=== PATIENT | male | born 1940 | race Caucasian/White ===

== ENCOUNTER → 2016-10-21 | Outpatient (CLI) | payer BC ==
[~2016-10-21] MED LIST: ASCA500 PO; ASCO10003 PO; ASCO500T16 PO; ASPEC81 PO; ASPI-232 PO; ASPITAB71 PO; HYDR25SU6 PR; IBUP200T80 PO; LISI5TAB PO; LISI5TAB3 PO; LOPE2TAB84 PO; MULT-506 PO; SIMV10TA2 PO
[2016-10-21 13:06] LABS: BASO % 0.1 %; BASO ABS # 0.01 K/uL (0-0.2); COMPLETE YES; HEMATOCRIT 44.4 % (42-52); IG% 0.1 %; LYMPH % 19.2 %; LYMPH ABS # 1.48 K/uL (1.2-3.4); MEAN CELL VOLUME 87.6 fL (80-100); MEAN CORPUSCULAR HEMOGLOBIN 30.4 pg (25-34); MEAN CORPUSCULAR HGB CONC 34.7 g/dl (32-36); MONO % 7.4 %; NEUT % 72.2 %; PLATELET COUNT 126 K/uL (130-400); PLT ESTIMATE DECREASED; RED BLOOD COUNT 5.07 M/uL (4.7-6.1); WHITE BLOOD COUNT 7.71 K/uL (4.8-10.8)
[2016-10-21 13:08] LABS: ALT/SGPT 19 U/L (12-78); AST/SGOT 14 U/L (15-37); BLOOD UREA NITROGEN 18 mg/dl (7-18); CARBON DIOXIDE 26 mmol/L (21-32); CHLORIDE 109 mmol/L (98-107); GLUCOSE 90 mg/dl (70-99); POTASSIUM 4.1 mmol/L (3.5-5.1); SODIUM 145 mmol/L (136-145)
[2016-10-21 13:13] LABS: ALB/GLOB RATIO 1.1 (0.9-2); ALKALINE PHOSPHATASE 42 U/L (45-117); CHOLESTEROL 111 mg/dl (0-200); CHOLESTEROL/HDL RATIO 2.7; HDL CHOLESTEROL 41 mg/dl; LDL CHOLESTEROL CALCULATED 55 mg/dl; TRIGLYCERIDES 74 mg/dl (0-150); VERY LOW DENSITY LIPOPROT CALC 15 mg/dl
== END | disposition home or self-care (01) ==
LOC: C.LABBFT 08:35
PROVIDERS: ATTEND Internal Medicine
DX: E78.5 Hyperlipidemia, unspecified (principal); I10 Essential (primary) hypertension

== ENCOUNTER → 2017-02-17 | Outpatient (CLI) | payer BC | END | disposition home or self-care (01) | LOC: C.LABSPEC 17:29 | PROVIDERS: ATTEND Internal Medicine | DX: R19.7 Diarrhea, unspecified (principal) ==

== ENCOUNTER → 2017-02-19 | Outpatient (CLI) | payer BC ==
[~2017-02-19] MED LIST changes: +OPTIRAY 320 IV PRN
[2017-02-19 09:08] LABS: BLOOD UREA NITROGEN 13 mg/dl (7-18)
--- NOTE | 2017-02-19 10:47 | DIAGNOSTIC IMAGING REPORT ---
CT OF THE ABDOMEN AND PELVIS WITH CONTRAST CLINICAL HISTORY: Diarrhea. Weight loss. COMPARISON STUDY: None. TECHNIQUE: Following IV administration of 94 mL of Optiray-320, axial images of the abdomen and pelvis were obtained from the lung bases to the proximal femurs. Images were reviewed in the axial, sagittal, and coronal planes. IV contrast was administered without complication. Oral contrast was administered. CT DOSE: 336.23 mGy.cm FINDINGS: The heart is mildly enlarged. There is extensive coronary artery calcification. No pneumatosis, free air or portal venous gas is present. Mild emphysema is noted within visualized portions of the lower lungs. The liver, spleen, right adrenal gland and pancreas are unremarkable. A 1.5 cm left adrenal nodule is likely benign. There is no biliary or pancreatic ductal dilatation. There is no hydronephrosis. A 1.2 cm cyst within the midpole of the left kidney is noted. Caliber and wall thickness of small and large bowel are normal. The appendix is normal. There are scattered colonic diverticula without evidence for acute diverticulitis. There is no lymphadenopathy. There are brachytherapy seeds within the prostate. No suspicious osseous lesions are present. Mild compression deformity of the superior endplate of L1 is old. There are postsurgical findings consistent with a right inguinal hernia repair. Sensitivity for detection of mucosal lesions diminished given CT technique. There is moderate atherosclerotic plaque of the abdominal aorta. IMPRESSION: 1. No acute process within the abdomen or pelvis. 2. Mild cardiomegaly and extensive coronary artery calcification. 3. No abdominal or pelvic lymphadenopathy. Electronically signed by: Emile Park M.D. 02/19/2017 10:45 AM Dictated Date/Time: 02/19/2017 10:03 AM
== END | disposition home or self-care (01) ==
LOC: C.CTS 08:27
PROVIDERS: ATTEND Internal Medicine
DX: R19.7 Diarrhea, unspecified (principal)

== ENCOUNTER 2017-04-03 14:17 | Emergency (ER) | payer BC ==
[~2017-04-03] VITALS: Ht 175.3 cm; Wt 69.9 kg
[~2017-04-03 14:17] MED LIST changes: -ASCO10003 PO; -ASCO500T16 PO; -ASPI-232 PO; -HYDR25SU6 PR; -IBUP200T80 PO; -LISI5TAB PO; -LOPE2TAB84 PO; -OPTIRAY 320 IV PRN
[2017-04-03 14:26] VITALS: TEMP 36.4; Ht 175.3 cm; Wt 69.9 kg
[2017-04-03 15:22] LABS: BASO % 0.1 %; BASO ABS # 0.01 K/uL (0-0.2); COMPLETE YES; EOS % 0.2 %; HEMATOCRIT 40.7 % (42-52); IG% 0.1 %; LYMPH % 15.4 %; MEAN CELL VOLUME 87.9 fL (80-100); MEAN CORPUSCULAR HEMOGLOBIN 29.2 pg (25-34); MEAN CORPUSCULAR HGB CONC 33.2 g/dl (32-36); MEAN PLATELET VOLUME 11.2 fL (7.4-10.4); MONO % 6.2 %; PLATELET COUNT 149 K/uL (130-400); RED BLOOD COUNT 4.63 M/uL (4.7-6.1); WHITE BLOOD COUNT 9.73 K/uL (4.8-10.8)
[2017-04-03 15:39] LABS: BUN/CREATININE RATIO 11.8 (10-20); CALCIUM 8.8 mg/dl (8.5-10.1); CREATININE 1.1 mg/dl (0.60-1.40); MAGNESIUM 2.4 mg/dl (1.8-2.4)
[2017-04-03 15:41] LABS: ALB/GLOB RATIO 0.9 (0.9-2)
--- NOTE | 2017-04-03 15:41 | DIAGNOSTIC IMAGING REPORT ---
CT OF THE HEAD WITHOUT CONTRAST CLINICAL HISTORY: Change in mental status. COMPARISON STUDY: Head CT November 16, 2015. CT DOSE: 623.48 mGy.cm TECHNIQUE: Helical axial images of the head were obtained without IV contrast. Automated exposure control was utilized for the study. A dose lowering technique was utilized adhering to the principles of ALARA. FINDINGS: No acute intracranial hemorrhage, midline shift or mass effect is present. Ventricular system is stable. Basilar cisterns are patent. There are no extra-axial collections. Extensive white matter hypodensity suggests small vessel disease. There are no findings to suggest acute dural sinus thrombosis or acute territorial infarct. There are no significant calvarial abnormalities. Visualized portions of the sinuses and mastoid air cells are clear. IMPRESSION: No acute intracranial findings. Electronically signed by: Emile Park M.D. 04/03/2017 3:40 PM Dictated Date/Time: 04/03/2017 3:37 PM
[2017-04-03] MEDS ORDERED: IBUP200T80 PO (15:55)
[2017-04-03] MEDS ORDERED: LISI5TAB PO (15:55)
[2017-04-03] MEDS ORDERED: ASPI-232 PO (15:55)
[2017-04-03] MEDS ORDERED: ASCO10003 PO (15:55)
--- NOTE | 2017-04-03 16:20 | DIAGNOSTIC IMAGING REPORT ---
PA CHEST RADIOGRAPH AND UPRIGHT AND SUPINE AP RADIOGRAPHS OF THE ABDOMEN CLINICAL HISTORY: Diarrhea. COMPARISON STUDY: Chest radiograph May 08, [address] of the abdomen and pelvis February 19, 2017. FINDINGS: Lung volumes are normal. Lungs are clear. There is no pneumothorax or pleural effusion. Cardiac size is normal. There is no evidence of pulmonary edema. There is no free air. A few round hyperdensities within the abdomen and pelvis likely reflects contrast or calcifications within colonic diverticula. Bowel gas pattern is normal. There are brachytherapy seeds within the prostate. IMPRESSION: 1. No free air or evidence of bowel obstruction. 2. No acute cardiopulmonary findings. Electronically signed by: Emile Park M.D. 04/03/2017 4:19 PM Dictated Date/Time: 04/03/2017 4:14 PM
[2017-04-03 16:34] LABS: URINE APPEARANCE CLEAR (CLEAR); URINE BILIRUBIN NEG (NEG); URINE COLOR YELLOW; URINE NITRITE NEG (NEG); URINE SPECIFIC GRAVITY 1.019 (1.000-1.030); UROBILINOGEN NEG (NEG); ZZUR CULT IF INDIC CLEAN CATCH NO
[2017-04-03 16:36] LABS: MANUAL MICROSCOPIC REQUIRED? NO; REVIEW REQ? NO
[2017-04-03] MEDS ORDERED: OPTIRAY 320 IV PRN (17:15)
--- NOTE | 2017-04-03 18:38 | DIAGNOSTIC IMAGING REPORT ---
CT OF THE ABDOMEN AND PELVIS WITH CONTRAST CLINICAL HISTORY: Diarrhea. Elevated lipase. COMPARISON STUDY: CT of the abdomen and pelvis February 19, 2017. TECHNIQUE: Following IV administration of 94 mL of Optiray-320, axial images of the abdomen and pelvis were obtained from the lung bases to the proximal femurs. Images were reviewed in the axial, sagittal, and coronal planes. IV contrast was administered without complication. A dose lowering technique was utilized adhering to the principles of ALARA. CT DOSE: 325.38 mGy.cm FINDINGS: The liver, spleen, adrenal glands, right kidney and pancreas are normal. No pancreatic or biliary ductal dilatation. There is no peripancreatic infiltration. There are no peripancreatic fluid collections. Several left renal cysts are noted. There is no evidence for a bowel obstruction. There is colonic diverticulosis without evidence for acute diverticulitis. The appendix is normal. Brachytherapy seeds within the prostate are noted. There are no suspicious osseous lesions. There are findings suggestive of a right inguinal hernia repair. There is moderate atherosclerotic plaque of the abdominal aorta. IMPRESSION: 1. No acute process within the abdomen or pelvis. 2. Normal CT appearance of the pancreas. 3. No bowel obstruction. Normal appendix. Electronically signed by: Emile Park M.D. 04/03/2017 6:36 PM Dictated Date/Time: 04/03/2017 6:28 PM
--- NOTE | 2017-04-03 19:08 | EMERGENCY ROOM VISIT NOTE ---
History Report prepared by Nacho: Zainab Chamorro Under the Supervision of: Dr. Briseyda Bar D.O. First contact with patient: 14:36 Chief Complaint: ALTERED MENTAL STATUS Stated Complaint: CONFUSED Nursing Triage Summary: brought in because he has been confused for a while and it has been getting worse. states the matchbook assembler told her to bring him to the hospital. she also states he has lost 40 pounds and has been having diarrhea for 6 months. xiao package of medication patient has been taking was told by a friend to try it for his stomach and he has been taking it. she did not relieze that it is a laxative and what is probably giving him the diarrhea. History of Present Illness The patient is a 76 year old male who presents to the Emergency Room with complaints of an episode of confusion starting a few weeks ago. The patient's states that he has been saying things that aren't true. She states that he asked for a divorce though they are not experiencing marital problems. The patient states that he has had diarrhea for 6 months. He reports that he talked to his preacher and his gave him laxatives that have helped with the frequency. He states prior to taking the laxatives, he was having a bowel movement every half hour. The patient's reports that he has lost 40 lbs in the past 6 months. The patient notes that he has never been constipated in the past. The patient states that he went to the doctors for the diarrhea recently. He reports that they completed a CT and lab work that came back normal. The patient complains of chills. The patient denies hematochezia, abdominal pains, bloating, gassy, cramping, nausea, vomiting, fevers, chest pain, shortness of breath, swelling in legs, change in appetite, and urinary symptoms. The patient notes that he has had difficulty remembering things for the past two years. Difficulty obtaining hx from pt and . concerned about memory loss and pt concerned about diarrhea. Source of History: patient Onset: few weeks ago Position: other (global) Quality: other (global) Timing: other (episode) Modifying Factors (Relieving): other (laxatives) Associated Symptoms: + chills, + diarrhea, No fevers, No chest pain, No SOB , No nausea, No vomiting, No abdominal pain, No hematochezia, No urinary symptoms Note: The patient complains of difficulty remembering things. The patient denies bloating, feeling gassy, cramping, swelling in legs, and change of appetite. Review of Systems Pt denies headache, change in vision, fevers, chest pain, shortness of breath, nausea, vomiting, diarrhea, pain with urination, and melena. Past Medical & Surgical Surgical Problems: (1) History of knee replacement, total Family History Cancer Social History Smoking Status: Former Smoker Alcohol Use: none Drug Use: none Marital Status: Housing Status: lives with significant other Occupation Status: retired Current/Historical Medications Scheduled Ascorbic Acid (Vitamin C), 1 TAB PO DAILY Aspirin (Aspir-81), 1 TAB PO DAILY Lisinopril (Prinivil), 5 MG PO DAILY Simvastatin (Zocor), 10 MG PO DAILY Scheduled PRN Ibuprofen (Ibu-200), 2 TAB PO QID PRN for Pain Allergies Coded Allergies: Heparin (Verified Allergy, Severe, HIT ANTIBODY POSITIVE (PER DR JONES) , 04/03/17) Hydrocodone (Unverified Allergy, Severe, SHORTNESS OF BREATH, 04/03/17) Physical Exam Vital Signs Date Time Temp Pulse Resp B/P (MAP) Pulse Ox O2 Delivery O2 Flow Rate FiO2 04/03/17 19:24 57 18 173/102 98 04/03/17 18:09 56 20 192/79 97 04/03/17 15:40 54 20 165/95 96 04/03/17 14:26 36.4 62 20 133/82 96 Room Air Physical Exam GENERAL: alert, well appearing, well nourished, no distress, non-toxic EYE EXAM: normal conjunctiva, PERRL and EOM's grossly intact OROPHARYNX: no exudate, no erythema, lips, buccal mucosa, and tongue normal and mucous membranes are moist NECK: supple, no nuchal rigidity, no adenopathy, non-tender LUNGS: Clear to auscultation. Normal chest wall mechanics HEART: no murmurs, S1 normal and S2 normal ABDOMEN: abdomen soft, non-tender, normo-active bowel sounds, no masses, no rebound or guarding. BACK: Back is symmetrical on inspection and there is no deformity, no midline tenderness, no CVA tenderness. SKIN: no rashes and no bruising UPPER EXTREMITIES: upper extremities are grossly normal. LOWER EXTREMITIES: No pitting edema. NEURO EXAM: Normal sensorium, cranial nerves II-XII grossly intact, normal speech, no gross weakness of arms, no gross weakness of legs. Patient has some memory difficulty, no ataxia, no facial droop, speech was clear. Medical Decision & Procedures ER Provider Diagnostic Interpretation: Radiology results have been interpreted by the radiologist and reviewed by me. CT OF THE HEAD WITHOUT CONTRAST CLINICAL HISTORY: Change in mental status. COMPARISON STUDY: Head CT November 16, 2015. CT DOSE: 623.48 mGy.cm TECHNIQUE: Helical axial images of the head were obtained without IV contrast. Automated exposure control was utilized for the study. A dose lowering technique was utilized adhering to the principles of ALARA. FINDINGS: No acute intracranial hemorrhage, midline shift or mass effect is present. Ventricular system is stable. Basilar cisterns are patent. There are no extra-axial collections. Extensive white matter hypodensity suggests small vessel disease. There are no findings to suggest acute dural sinus thrombosis or acute territorial infarct. There are no significant calvarial abnormalities. Visualized portions of the sinuses and mastoid air cells are clear. IMPRESSION: No acute intracranial findings. Electronically signed by: Emile Park M.D. 04/03/2017 3:40 PM Dictated Date/Time: 04/03/2017 3:37 PM PA CHEST RADIOGRAPH AND UPRIGHT AND SUPINE AP RADIOGRAPHS OF THE ABDOMEN CLINICAL HISTORY: Diarrhea. COMPARISON STUDY: Chest radiograph May 08, [address] of the abdomen and pelvis February 19, 2017. FINDINGS: Lung volumes are normal. Lungs are clear. There is no pneumothorax or pleural effusion. Cardiac size is normal. There is no evidence of pulmonary edema. There is no free air. A few round hyperdensities within the abdomen and pelvis likely reflects contrast or calcifications within colonic diverticula. Bowel gas pattern is normal. There are brachytherapy seeds within the prostate. IMPRESSION: 1. No free air or evidence of bowel obstruction. 2. No acute cardiopulmonary findings. Electronically signed by: Emile Park M.D. 04/03/2017 4:19 PM Dictated Date/Time: 04/03/2017 4:[address] OF THE ABDOMEN AND PELVIS WITH CONTRAST CLINICAL HISTORY: Diarrhea. Elevated lipase. COMPARISON STUDY: CT of the abdomen and pelvis February 19, 2017. TECHNIQUE: Following IV administration of 94 mL of Optiray-320, axial images of the abdomen and pelvis were obtained from the lung bases to the proximal femurs. Images were reviewed in the axial, sagittal, and coronal planes. IV contrast was administered without complication. A dose lowering technique was utilized adhering to the principles of ALARA. CT DOSE: 325.38 mGy.cm FINDINGS: The liver, spleen, adrenal glands, right kidney and pancreas are normal. No pancreatic or biliary ductal dilatation. There is no peripancreatic infiltration. There are no peripancreatic fluid collections. Several left renal cysts are noted. There is no evidence for a bowel obstruction. There is colonic diverticulosis without evidence for acute diverticulitis. The appendix is normal. Brachytherapy seeds within the prostate are noted. There are no suspicious osseous lesions. There are findings suggestive of a right inguinal hernia repair. There is moderate atherosclerotic plaque of the abdominal aorta. IMPRESSION: 1. No acute process within the abdomen or pelvis. 2. Normal CT appearance of the pancreas. 3. No bowel obstruction. Normal appendix. Electronically signed by: Emile Park M.D. 04/03/2017 6:36 PM Dictated Date/Time: 04/03/2017 6:28 PM Laboratory Results 04/03/17 15:05 Red Blood Count 4.63, Mean Corpuscular Volume 87.9, Mean Corpuscular Hemoglobin 29.2, Mean Corpuscular Hemoglobin Concent 33.2, Mean Platelet Volume 11.2, Neutrophils (%) (Auto) 78.0, Lymphocytes (%) (Auto) 15.4, Monocytes (%) (Auto) 6.2, Eosinophils (%) (Auto) 0.2, Basophils (%) (Auto) 0.1, Neutrophils # (Auto) 7.59, Lymphocytes # (Auto) 1.50, Monocytes # (Auto) 0.60, Eosinophils # (Auto) 0.02, Basophils # (Auto) 0.01 04/03/17 15:05 Test 04/03/17 15:05 04/03/17 16:20 White Blood Count 9.73 K/uL (4.8-10.8) Red Blood Count 4.63 M/uL (4.7-6.1) Hemoglobin 13.5 g/dL (14.0-18.0) Hematocrit 40.7 % (42-52) Mean Corpuscular Volume 87.9 fL (80-100) Mean Corpuscular Hemoglobin 29.2 pg (25-34) Mean Corpuscular Hemoglobin Concent 33.2 g/dl (32-36) Platelet Count 149 K/uL (130-400) Mean Platelet Volume 11.2 fL (7.4-10.4) Neutrophils (%) (Auto) 78.0 % Lymphocytes (%) (Auto) 15.4 % Monocytes (%) (Auto) 6.2 % Eosinophils (%) (Auto) 0.2 % Basophils (%) (Auto) 0.1 % Neutrophils # (Auto) 7.59 K/uL (1.4-6.5) Lymphocytes # (Auto) 1.50 K/uL (1.2-3.4) Monocytes # (Auto) 0.60 K/uL (0.11-0.59) Eosinophils # (Auto) 0.02 K/uL (0-0.5) Basophils # (Auto) 0.01 K/uL (0-0.2) RDW Standard Deviation 43.7 fL (36.4-46.3) RDW Coefficient of Variation 13.6 % (11.5-14.5) Immature Granulocyte % (Auto) 0.1 % Immature Granulocyte # (Auto) 0.01 K/uL (0.00-0.02) Anion Gap 5.0 mmol/L (3-11) Est Creatinine Clear Calc Drug Dose 57.4 ml/min Estimated GFR () 75.7 Estimated GFR (Non- 65.3 BUN/Creatinine Ratio 11.8 (10-20) Lactic Acid Level 1.0 mmol/L (0.4-2.0) Calcium Level 8.8 mg/dl (8.5-10.1) Magnesium Level 2.4 mg/dl (1.8-2.4) Total Bilirubin 0.6 mg/dl (0.2-1) Aspartate Amino Transf (AST/SGOT) 15 U/L (15-37) Alanine Aminotransferase (ALT/SGPT) 18 U/L (12-78) Alkaline Phosphatase 51 U/L (45-117) Ammonia 17.0 umol/L (11-32) Total Protein 7.0 gm/dl (6.4-8.2) Albumin 3.3 gm/dl (3.4-5.0) Globulin 3.7 gm/dl (2.5-4.0) Albumin/Globulin Ratio 0.9 (0.9-2) Lipase 556 U/L (73-393) Urine Color YELLOW Urine Appearance CLEAR (CLEAR) Urine pH 6.0 (4.5-7.5) Urine Specific [place] 1.019 (1.000-1.030) Urine Protein NEG (NEG) Urine Glucose (UA) NEG (NEG) Urine Ketones NEG (NEG) Urine Occult Blood NEG (NEG) Urine Nitrite NEG (NEG) Urine Bilirubin NEG (NEG) Urine Urobilinogen NEG (NEG) Urine Leukocyte Esterase NEG (NEG) Date/Time Source Procedure Growth Status 04/03/17 14:47 Stool C.difficile Toxin B Gene (PCR) - Final Complete Laboratory results per my review. ECG Indication: altered mental status Rate (beats per minute): 57 Rhythm: sinus bradycardia Findings: no acute ischemic change, other (normal axis, normal intervals) ED Course 1440: The patient was evaluated in room C6. A complete history and physical exam was performed. 1452: I viewed VMR. The patient had a negative stool and negative C-Diff on 03/09. The outpatient CT of the abdomen and pelvis on 03/09/2017 showed no acute processes. 1658: I reevaluated the patient and he is doing okay. 1853: Upon reevaluation, the patient is feeling better. I discussed the findings and the treatment plan with the patient. He verbalizes agreement and understanding. The patient was discharged home. Medical Decision Differential diagnosis: Etiologies such as metabolic, infection, hypoglycemia, electrolyte abnormalities , cardiac sources, intracerebral event, toxicologic, neurologic, as well as others were entertained. Difficulty obtaining history from both patient and as different history and concerns obtained from each. Despite patient's complaint of 6 months of diarrhea and outpatient evaluation, had a normal formed stool here. Culture sent as a precaution. Patient with a normal exam at bedside, however does appear to have some difficulty with memory. states this memory loss has also begun to affect his emotional lability. No appearance of bacteremia/sepsis , recent outpatient CAT scan of the abdomen unremarkable. Patient found to have a mildly elevated lipase here however abdomen soft and nontender, no nausea and vomiting, patient not an alcoholic, no evidence for cholelithiasis or cholecystitis. No CT evidence of pancreatitis noted. Discussed this lab abnormality with the patient and and advised close follow-up with family doctor, adequate hydration. Discussed symptoms to watch and return for. Discussed with conversation with patient's family doctor regarding memory loss and possible need for additional evaluation or medications to slow progression of possible dementia. She is also requesting medication to help the patient sleep as she states he is very restless and will not stay asleep. Discussed with her symptoms to watch and return for regarding his condition, she verbalized understanding was agreeable with plan. Patient had reassuring vital signs and labs, was able to her with a steady gait, had a normal nonfocal neuro exam at bedside, doubt acute CVA, head CT negative. Case management S2 discussed with patient and possible need for additional resources to help him at home given that they seem to have a difficult time understanding medications, patient's recent problems with complaints, they refused any additional services or evaluation for services from case management. Medication Reconcilliation Current Medication List: was personally reviewed by me Blood Pressure Screening Patient's blood pressure: Elevated blood pressure Blood pressure disposition: Referred to PCP Impression Primary Impression: Pancreatitis Additional Impression: Memory difficulties Scribe Attestation The scribe's documentation has been prepared under my direction and personally reviewed by me in its entirety. I confirm that the note above accurately reflects all work, treatment, procedures, and medical decision making performed by me. Departure Information Dispostion Home / Self-Care Referrals Chino Jones M.D. (PCP) Forms HOME CARE DOCUMENTATION FORM, IMPORTANT VISIT INFORMATION Patient Instructions My [facility] Additional Instructions Please follow up with your family doctor next week and have them recheck your pancreas number, lipase, which is elevated today at greater than 500. Your CAT scan did not show any evidence of inflammation or infection at your pancreas though. Please discuss with them your recent difficulty sleeping as well as her difficulty remembering things. This may require additional evaluation or workup. Please continue to monitor your stools for any additional diarrhea. If you have any worsening diarrhea, develop abdominal pain, noticed black or bloody stools, develop vomiting, fevers or chills, or have any other new concerns, please return to the emergency room. Problem Qualifiers Primary Impression: Pancreatitis Chronicity: acute Pancreatitis type: unspecified pancreatitis type Acute pancreatitis complication: no infection or necrosis Qualified Codes: K85.90 - Acute pancreatitis without necrosis or infection, unspecified
[2017-04-03 19:24] VITALS: BP 173/102; PULSE 57; O2SAT 98
[2017-05-07] MEDS ORDERED: LOPE2TAB84 PO (12:23)
[2017-05-07] MEDS ORDERED: MULT-506 PO (12:23)
[2017-05-25] MEDS ORDERED: HYDR25SU6 PR (17:05)
[2017-06-03] MEDS ORDERED: ASCO500T16 PO (20:59)
== END 2017-04-03 19:24 | disposition home or self-care (01) ==
LOC: C.EDB 14:18 → C.EDC 19:24
DX: K85.90 Acute pancreatitis without necrosis or infection, unspecified (principal); R41.3 Other amnesia; Z87.891 Personal history of nicotine dependence; Z79.82 Long term (current) use of aspirin

== ENCOUNTER → 2017-04-06 | Outpatient (CLI) | payer BC ==
[~2017-04-06] MED LIST changes: -ASCA500 PO; +ASCO10003 PO; +ASCO500T16 PO; -ASPEC81 PO; +ASPI-232 PO; -ASPITAB71 PO; +HYDR25SU6 PR; +IBUP200T80 PO; +LISI5TAB PO; -LISI5TAB3 PO; +LOPE2TAB84 PO
[2017-04-06 18:15] LABS: LYME DISEASE AB IGG NEG (NEG); LYME DISEASE AB IGM NEG (NEG)
== END | disposition home or self-care (01) ==
LOC: C.LABBFT 11:44
PROVIDERS: ATTEND Physician Assistant Medical
DX: R41.3 Other amnesia (principal)

== ENCOUNTER → 2017-04-07 | Outpatient (CLI) | payer BC ==
[2017-04-10 02:18] LABS: METHYLMALONIC ACID 185 NMOL/L (87-318)
== END | disposition home or self-care (01) ==
LOC: C.LABBFT 10:28
PROVIDERS: ATTEND Physician Assistant Medical
DX: R79.9 Abnormal finding of blood chemistry, unspecified (principal)

== ENCOUNTER → 2017-04-29 | Outpatient (CLI) | payer BC | END | disposition home or self-care (01) | LOC: C.LABBFT 12:52 | PROVIDERS: ATTEND Urology | DX: C61 Malignant neoplasm of prostate (principal) ==

== ENCOUNTER → 2017-05-19 | Day surgery (SDC) | payer BC ==
[2017-05-07 12:24] VITALS: Ht 177.8 cm; Wt 56.8 kg
[~2017-05-19] VITALS: Ht 177.8 cm; Wt 56.8 kg
[~2017-05-19] MED LIST changes: +LIDOCAINE HCL 2% 2 ML VIAL (20MG/ML) ONE; +PROPOFOL IV EMULSION 10 MG/ML 20 ML VIAL IV ONE; +SODIUM CHLORIDE 0.9% 500ML 500 ML IV ONE
--- NOTE | 2017-05-19 15:06 | Endo History and Physical ---
History & Physical Date of Service: May 19, 2017. Chief Complaint: diarrhea Referring Physician: Dr. Duarte History of Present Illness 76 yo CM who presents for Colonoscopy secondary to diarrhea. Past Surgical History Hx Cardiac Surgery: No Hx Internal Defibrillator: No Hx Pacemaker: No Hx Abdominal Surgery: No Hx of Implantable Prosthesis: No Hx Post-Op Nausea and Vomiting: No Hx Cancer Surgery: No Hx Thoracic Surgery: No Hx Orthopedic: Yes (BLT TKA) Hx Urinary Tract Surgery: No Family History None Social History Smoking Status: Former Smoker Hx Substance Use: No Hx Alcohol Use: No Allergies Coded Allergies: Heparin (Verified Allergy, Severe, HIT ANTIBODY POSITIVE (PER DR DUARTE) , 05/07/17) Hydrocodone (Verified Allergy, Severe, SHORTNESS OF BREATH, 05/19/17) Current Medications Reported Home Medications Medications Dose Route/Sig Max Daily Dose Days Date Category Anti-Diarrheal (Loperamide Hcl) 2 Mg Tab 1 Tab PO TID 05/07/17 Reported Multivitamin (Multivitamins) Tab 1 Tab PO QAM 05/07/17 Reported Aspir-81 (Aspirin) 81 Mg Tab 1 Tab PO QAM 04/03/17 Reported Vitamin C (Ascorbic Acid) 1,000 Mg Tab 1 Tab PO QAM 04/03/17 Reported Prinivil (Lisinopril) 5 Mg Tab 5 Mg PO QPM 04/03/17 Reported Ibu-200 (Ibuprofen) 200 Mg Tab 2 Tab PO QID PRN 04/03/17 Reported Zocor (Simvastatin) 10 Mg Tab 10 Mg PO QPM 05/08/10 Reported Vital Signs Weight (Kilograms): 56.82 Height (Feet): 5 Height (Inches): 10 Date Time Temp Pulse Resp B/P (MAP) Pulse Ox O2 Delivery O2 Flow Rate FiO2 05/19/17 14:44 36.7 99 22 193/98 (129) 99 Room Air Physical Exam General Appearance: WD/WN, no apparent distress Respiratory/Chest: Auscultation: breath sounds normal Cardiovascular: Heart Auscultation: RRR Abdomen: Bowel Sounds: normal Inspection & Palpation: soft, non-distended, no tenderness, guarding & rebound Assessment and Plan Assessment: 76 yo CM who presents for Colonoscopy secondary to diarrhea. Plan: Proceed with colonoscopy.
--- NOTE | 2017-05-19 15:21 | Discharge Instructions ---
Endoscopy Patient Instructions Date / Procedure(s) Performed May 19, 2017. Colonoscopy Allergy Information Coded Allergies: Heparin (Verified Allergy, Severe, HIT ANTIBODY POSITIVE (PER DR DUARTE) , 05/07/17) Hydrocodone (Verified Allergy, Severe, SHORTNESS OF BREATH, 05/19/17) Discharge Date / Findings May 19, 2017. Extremely poor bowel prep with large amount of solid stool in the rectal vault Medication Instructions Stopped Medication(s): stopped ASA Wednesday 1) Recommend Metamucil 1 tablespoonful in 8oz glass of water daily. 2) OK to resume all medications today as prescribed Reported Home Medications Medications Dose Route/Sig Max Daily Dose Days Date Category Anti-Diarrheal (Loperamide Hcl) 2 Mg Tab 1 Tab PO TID 05/07/17 Reported Multivitamin (Multivitamins) Tab 1 Tab PO QAM 05/07/17 Reported Aspir-81 (Aspirin) 81 Mg Tab 1 Tab PO QAM 04/03/17 Reported Vitamin C (Ascorbic Acid) 1,000 Mg Tab 1 Tab PO QAM 04/03/17 Reported Prinivil (Lisinopril) 5 Mg Tab 5 Mg PO QPM 04/03/17 Reported Ibu-200 (Ibuprofen) 200 Mg Tab 2 Tab PO QID PRN 04/03/17 Reported Zocor (Simvastatin) 10 Mg Tab 10 Mg PO QPM 05/08/10 Reported Provider Instructions Activity Restrictions - No exercising or heavy lifting for 24 hours. - Do not drink alcohol the day of the procedure. - Do not drive a car or operate machinery until the day after the procedure. - Do not make any important decisions or sign important papers in 24 hours after the procedure. Following Day: - Return to full activity which may include returning to work/school. Diet Start your diet with liquids and light foods (jello, soup, juice, toast). Then eat your usual diet if not nauseated. Treatment For Common After Affects For mild abdominal pain, bloating, or excessive gas: - Rest - Eat lightly - Lie on right side Follow-Up Information Follow-up with Dr. Duarte as scheduled Anesthesia Information What You Should Know You have had a procedure that required some medicine to reduce anxiety and discomfort. This treatment is called moderate sedation. After receiving the treatment, you may be sleepy, but you will be able to breathe on your own. The effects of the treatment may last for several hours. Follow these instructions along with Activity/Diet recommendations noted above: * Do NOT do anything where dizziness or clumsiness would be dangerous. * Rest quietly at home today, then you can be up and about tomorrow. * Have a responsible person stay with you the rest of today. * You may have had an I.V. today. If so, you may take the dressing off later today. Recommendations Call your doctor if: * Trouble breathing * Continuous vomiting for more than 24 hours * Temperature above 101 degrees * Severe abdominal pain or bloating * Pain not relieved by pain medicine ordered * There is increased drainage or redness from any incision * A large amount of rectal bleeding greater than 2-3 tablespoons. (If you had a polyp/s removed or have hemorrhoids, a small amount of blood - from the rectum is to be expected.) * You have any unanswered questions or concerns. IN THE EVENT OF A SERIOUS EMERGENCY, GO TO THE NEAREST EMERGENCY ROOM Your discharge instructions were prepared by provider Paxton Mandujano. Patient Instructions Signature Page Jeremy Antoine Patient (or Guardian) Signature/Date: I have read and understand the instructions given to me by my caregivers. Caregiver/RN/Doctor Signature/Date: The above-named patient and/or guardian has received patient instructions on this date. + Original Patient Signature Page (only) stays with chart. Please make copy for patient.
--- NOTE | 2017-05-19 15:27 | GI REPORT ---
Procedure Date: 05/19/2017 2:45 PM Procedure: Colonoscopy Indications: Chronic diarrhea Medicines: Monitored Anesthesia Care Complications: No immediate complications. Estimated Blood Loss: Estimated blood loss: none. Procedure: Pre-Anesthesia Assessment: - Prior to the procedure, a History and Physical was performed, and patient medications and allergies were reviewed. The patient's tolerance of previous anesthesia was also reviewed. The risks and benefits of the procedure and the sedation options and risks were discussed with the patient. All questions were answered, and informed consent was obtained. Prior Anticoagulants: The patient has taken aspirin, last dose was 3 days prior to procedure. ASA Grade Assessment: III - A patient with severe systemic disease. After reviewing the risks and benefits, the patient was deemed in satisfactory condition to undergo the procedure. After I obtained informed consent, the scope was passed under direct vision. Throughout the procedure, the patient's blood pressure, pulse, and oxygen saturations were monitored continuously. The Scope was introduced through the anus with the intention of advancing to the ileum. The scope was advanced to the rectum before the procedure was aborted. Medications were given. The colonoscopy was performed with difficulty due to inadequate bowel prep. The patient tolerated the procedure well. The quality of the bowel preparation was 90 percent obscured. No anatomical landmarks were photographed. Findings: Extensive amounts of stool was found in the rectum, precluding visualization. Lavage of the area was performed using a large amount, resulting in incomplete clearance with continued poor visualization. Impression: - Stool in the rectum. - No specimens collected. Recommendation: - Resume previous diet. - Use original regular Metamucil one tablespoon PO daily. - Resume aspirin at prior dose today. - Return to primary care physician as previously scheduled. Paxton Mandujano DO 05/19/2017 3:27:25 PM This report has been signed electronically. Note Initiated On: 05/19/2017 2:45 PM I attest to the content of the Intraoperative Record and orders documented therein, exceptions below
--- NOTE | 2017-05-19 15:34 | Anesthesiology Progress Note ---
Anesthesia Post Op Note Date & Time May 19, 2017 at 15:34 Vital Signs Pain Intensity: 2 Vital Signs Past 12 Hours Date Time Temp Pulse Resp B/P (MAP) Pulse Ox O2 Delivery O2 Flow Rate FiO2 05/19/17 14:44 36.7 99 22 193/98 (129) 99 Room Air Notes Mental Status: alert / awake / arousable, participated in evaluation Pt Amnestic to Procedure: Yes Nausea / Vomiting: adequately controlled Pain: adequately controlled Airway Patency, RR, SpO2: stable & adequate BP & HR: stable & adequate Hydration State: stable & adequate Anesthetic Complications: no major complications apparent
[2017-05-19 16:02] VITALS: BP 170/97; PULSE 83; O2SAT 97
== END | disposition home or self-care (01) ==
LOC: C.GI 14:12
PROVIDERS: ATTEND Internal Medicine
DX: R19.7 Diarrhea, unspecified (principal); Z96.653 Presence of artificial knee joint, bilateral; Z87.891 Personal history of nicotine dependence; Z90.89 Acquired absence of other organs; I10 Essential (primary) hypertension; E78.5 Hyperlipidemia, unspecified; Z86.73 Personal history of transient ischemic attack (TIA), and cerebral infarction without residual deficits; Z85.46 Personal history of malignant neoplasm of prostate; Z79.82 Long term (current) use of aspirin

== ENCOUNTER → 2017-05-25 | Emergency (ER) | payer BC ==
[~2017-05-25] VITALS: Ht 177.8 cm; Wt 68.6 kg
[~2017-05-25] MED LIST changes: -LIDOCAINE HCL 2% 2 ML VIAL (20MG/ML) ONE; -PROPOFOL IV EMULSION 10 MG/ML 20 ML VIAL IV ONE; +SODIUM CHLORIDE 0.9% 1000ML 1,000 ML IV STA; -SODIUM CHLORIDE 0.9% 500ML 500 ML IV ONE
[2017-05-25 13:10] VITALS: TEMP 37; Ht 177.8 cm; Wt 68.6 kg
[2017-05-25 14:58] LABS: BUN/CREATININE RATIO 18.4 (10-20); CALCIUM 9.2 mg/dl (8.5-10.1); CREATININE 0.95 mg/dl (0.60-1.40); POTASSIUM 3.8 mmol/L (3.5-5.1)
[2017-05-25 15:10] LABS: BASO % 0.2 %; BASO ABS # 0.02 K/uL (0-0.2); COMPLETE YES; EOS % 0.3 %; HEMATOCRIT 37.7 % (42-52); IG% 0.1 %; LYMPH % 15.4 %; LYMPH ABS # 1.55 K/uL (1.2-3.4); MEAN CELL VOLUME 87.1 fL (80-100); MEAN CORPUSCULAR HEMOGLOBIN 28.9 pg (25-34); MEAN CORPUSCULAR HGB CONC 33.2 g/dl (32-36); MEAN PLATELET VOLUME 10.7 fL (7.4-10.4); MONO % 7.7 %; NEUT % 76.3 %; PLATELET COUNT 154 K/uL (130-400); RED BLOOD COUNT 4.33 M/uL (4.7-6.1); WHITE BLOOD COUNT 10.04 K/uL (4.8-10.8)
--- NOTE | 2017-05-25 15:42 | DIAGNOSTIC IMAGING REPORT ---
ABDOMEN AND PELVIS CT WITH IV CONTRAST CT DOSE: 338.16 mGy.cm HISTORY: lower back/rectal pain TECHNIQUE: Multiaxial CT images of the abdomen and pelvis were performed following the use of intravenous contrast. A dose lowering technique was utilized adhering to the principles of ALARA. COMPARISON STUDY: Abdomen and pelvis CT 04/03/2017. FINDINGS: Mild dependent changes seen within the lung bases posteriorly. No pneumoperitoneum. No pneumatosis. No suspicious lytic or blastic osseous lesions. Mildly distended and fluid-filled distal esophagus, unchanged. Prior right inguinal hernia repair. The liver, gallbladder, spleen, and right adrenal gland are unremarkable. Stable 2 cm left adrenal gland nodule. No pancreatic masses. Stable mild dilatation of the distal main pancreatic duct measuring up to 5 mm. No common bile duct dilatation. No retroperitoneal lymphadenopathy. Stable hypodense lesions within the left kidney. These likely represent cysts. The dominant lesion measures 1.4 cm. The right kidney enhances normally. Mild fullness within the right renal collecting systems and ureters without nelson hydronephrosis. Moderately distended bladder. Multiple bladder diverticula are again noted. Prostate gland remains mildly enlarged. 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 Mild thickening of the rectum with mild perirectal fat stranding. Colonic diverticulosis. No evidence for bowel obstruction. Normal appendix. IMPRESSION: 1. Mild rectal wall thickening and mild perirectal fat. This is consistent with a nonspecific proctitis. 2. Moderately distended bladder. This likely accounts for the fullness within the bilateral renal collecting systems. 3. Stable mild dilatation of main pancreatic duct. Normal caliber common bile duct. Electronically signed by: Redd Cordova M.D. 05/25/2017 3:41 PM Dictated Date/Time: 05/25/2017 3:29 PM
--- NOTE | 2017-05-25 15:59 | DIAGNOSTIC IMAGING REPORT ---
LUMBAR SPINE WITHOUT CT DOSE: HISTORY: Pain lower back pain TECHNIQUE: Multiaxial CT images of the lumbar spine were performed and reformatted in the sagittal and coronal plane without the use of contrast. A dose lowering technique was utilized adhering to the principles of ALARA. COMPARISON: None. FINDINGS: Slight concavity superior endplate L1 considered nonacute. Moderate degenerative disc change throughout. Minimal grade 1 anterolisthesis of L4 and L5 secondary to degenerative changes of posterior elements. No major compromise of the spinal canal. IMPRESSION: No acute process. Moderate degenerative change. Mild osteopenia. The above report was generated using voice recognition software. It may contain grammatical, syntax or spelling errors. Electronically signed by: Roberto Soto M.D. 05/25/2017 3:58 PM Dictated Date/Time: 05/25/2017 3:56 PM
[2017-05-25 16:33] LABS: URINE APPEARANCE CLEAR (CLEAR); URINE BILIRUBIN NEG (NEG); URINE COLOR YELLOW; URINE EPITHELIAL CELL AUTO 0-5 /lpf (0-5); URINE NITRITE NEG (NEG); URINE SPECIFIC GRAVITY 1.023 (1.000-1.030); UROBILINOGEN NEG (NEG); ZZUR CULT IF INDIC CLEAN CATCH NO
[2017-05-25 16:38] LABS: MANUAL MICROSCOPIC REQUIRED? NO; REVIEW REQ? NO
[2017-05-25 17:20] VITALS: BP 154/83; PULSE 71; O2SAT 98
--- NOTE | 2017-05-25 20:45 | EMERGENCY ROOM VISIT NOTE ---
History Report prepared by Nacho: Dorothy Mitchell Under the Supervision of: Dr. Viraj Oneill D.O. First contact with patient: 13:51 Chief Complaint: DIARRHEA Stated Complaint: DIARRHEA,BACK PAIN Nursing Triage Summary: Pt presents with who reports pt has diarrhea and lower back pain. Denies n/v or abd pain. Pt to have a colonscopy on 05/19, but was able to have it done "not cleaned out enough". Was having it done d/t the diarrhea. Diarrhea x 6 mos. History of Present Illness The patient is a 76 year old male who presents to the Emergency Room with complaints of persistent diarrhea starting 7 months ago. The patient has been having 1-3 episodes of diarrhea per day. Until 5 months ago, he was having more than 3 episodes a day. He has had C diff testing on April 03 and February 12 which was negative. He was scheduled for a colonoscopy last week, but was unable to have it because he had not been adequately prepared. At the time of his colonoscopy, he started having intermittent lower back pain. The back pain is worse with movement. He had abdominal pain with his diarrhea, but does not have abdominal pain currently. He denies any hematochezia, dysuria, fever, weakness in the legs, numbness in the groin, cough, rhinorrhea, or sore throat. He denies any previous abdominal surgeries or history of cancer. Source of History: patient Onset: 7 months ago Position: other (global) Quality: other (diarrhea) Timing: other (persistent) Associated Symptoms: + back pain, No fevers, No sorethroat, No cough, No abdominal pain, No hematochezia, No urinary symptoms, No weakness, No numbness Review of Systems See HPI for pertinent positives & negatives. A total of 10 systems reviewed and were otherwise negative. Past Medical & Surgical Surgical Problems: (1) History of knee replacement, total Family History Cancer Social History Smoking Status: Former Smoker Alcohol Use: none Drug Use: none Marital Status: Housing Status: lives with significant other Occupation Status: retired Current/Historical Medications Scheduled Ascorbic Acid (Vitamin C), 1 TAB PO QAM Aspirin (Aspir-81), 1 TAB PO QAM Hydrocortisone Acetate (Rectal (Anucort-Hc), 25 MG UT DAILY Lisinopril (Prinivil), 5 MG PO QPM Multivitamin (Multivitamin), 1 TAB PO QAM Simvastatin (Zocor), 10 MG PO QPM Scheduled PRN Ibuprofen (Ibu-200), 2 TAB PO QID PRN for Pain Allergies Coded Allergies: Heparin (Verified Allergy, Severe, HIT ANTIBODY POSITIVE (PER DR JONES) , 05/25/17) Hydrocodone (Verified Allergy, Severe, SHORTNESS OF BREATH, 05/25/17) Physical Exam Vital Signs Date Time Temp Pulse Resp B/P (MAP) Pulse Ox O2 Delivery O2 Flow Rate FiO2 05/25/17 17:20 71 16 154/83 98 05/25/17 16:12 57 16 184/115 98 Room Air 05/25/17 15:03 60 16 173/96 98 Room Air 05/25/17 14:38 85 20 138/80 95 05/25/17 13:10 37.0 80 18 135/85 96 Room Air Physical Exam GENERAL: sitting up in bed, alert, well appearing, well nourished, no distress, non-toxic EYE EXAM: normal conjunctiva OROPHARYNX: no exudate, no erythema, lips, buccal mucosa, and tongue normal and mucous membranes are moist NECK: supple, no nuchal rigidity, no adenopathy, non-tender LUNGS: Clear to auscultation. Normal chest wall mechanics HEART: no murmurs, S1 normal and S2 normal ABDOMEN: abdomen soft, non-tender, normo-active bowel sounds, no masses, no rebound or guarding. BACK: Back is symmetrical on inspection and there is no deformity, mild lower lumbar tenderness midline, no CVA tenderness. RECTAL: Small external hemorrhoid present, heme positive stool. SKIN: no rashes and no bruising UPPER EXTREMITIES: upper extremities are grossly normal. LOWER EXTREMITIES: No pitting edema. NEURO EXAM: Normal sensorium, cranial nerves II-XII grossly intact, normal speech, no gross weakness of arms, no weakness in the lower extremities, able to ambulate without difficulty. Medical Decision & Procedures ER Provider Diagnostic Interpretation: Radiology results as stated below per my review and the radiologist's interpretation: LUMBAR SPINE WITHOUT CT DOSE: HISTORY: Pain lower back pain TECHNIQUE: Multiaxial CT images of the lumbar spine were performed and reformatted in the sagittal and coronal plane without the use of contrast. A dose lowering technique was utilized adhering to the principles of ALARA. COMPARISON: None. FINDINGS: Slight concavity superior endplate L1 considered nonacute. Moderate degenerative disc change throughout. Minimal grade 1 anterolisthesis of L4 and L5 secondary to degenerative changes of posterior elements. No major compromise of the spinal canal. IMPRESSION: No acute process. Moderate degenerative change. Mild osteopenia. The above report was generated using voice recognition software. It may contain grammatical, syntax or spelling errors. Electronically signed by: Roberto Soto M.D. 05/25/2017 3:58 PM Dictated Date/Time: 05/25/2017 3:56 PM ABDOMEN AND PELVIS CT WITH IV CONTRAST CT DOSE: 338.16 mGy.cm HISTORY: lower back/rectal pain TECHNIQUE: Multiaxial CT images of the abdomen and pelvis were performed following the use of intravenous contrast. A dose lowering technique was utilized adhering to the principles of ALARA. COMPARISON STUDY: Abdomen and pelvis CT 04/03/2017. FINDINGS: Mild dependent changes seen within the lung bases posteriorly. No pneumoperitoneum. No pneumatosis. No suspicious lytic or blastic osseous lesions. Mildly distended and fluid-filled distal esophagus, unchanged. Prior right inguinal hernia repair. The liver, gallbladder, spleen, and right adrenal gland are unremarkable. Stable 2 cm left adrenal gland nodule. No pancreatic masses. Stable mild dilatation of the distal main pancreatic duct measuring up to 5 mm. No common bile duct dilatation. No retroperitoneal lymphadenopathy. Stable hypodense lesions within the left kidney. These likely represent cysts. The dominant lesion measures 1.4 cm. The right kidney enhances normally. Mild fullness within the right renal collecting systems and ureters without nelson hydronephrosis. Moderately distended bladder. Multiple bladder diverticula are again noted. Prostate gland remains mildly enlarged. 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 Mild thickening of the rectum with mild perirectal fat stranding. Colonic diverticulosis. No evidence for bowel obstruction. Normal appendix. IMPRESSION: 1. Mild rectal wall thickening and mild perirectal fat. This is consistent with a nonspecific proctitis. 2. Moderately distended bladder. This likely accounts for the fullness within the bilateral renal collecting systems. 3. Stable mild dilatation of main pancreatic duct. Normal caliber common bile duct. Electronically signed by: Redd Cordova M.D. 05/25/2017 3:41 PM Dictated Date/Time: 05/25/2017 3:29 PM Laboratory Results 05/25/17 14:24 Red Blood Count 4.33, Mean Corpuscular Volume 87.1, Mean Corpuscular Hemoglobin 28.9, Mean Corpuscular Hemoglobin Concent 33.2, Mean Platelet Volume 10.7, Neutrophils (%) (Auto) 76.3, Lymphocytes (%) (Auto) 15.4, Monocytes (%) (Auto) 7.7, Eosinophils (%) (Auto) 0.3, Basophils (%) (Auto) 0.2, Neutrophils # (Auto) 7.66, Lymphocytes # (Auto) 1.55, Monocytes # (Auto) 0.77, Eosinophils # (Auto) 0.03, Basophils # (Auto) 0.02 05/25/17 14:24 Test 05/25/17 14:24 05/25/17 16:15 White Blood Count 10.04 K/uL (4.8-10.8) Red Blood Count 4.33 M/uL (4.7-6.1) Hemoglobin 12.5 g/dL (14.0-18.0) Hematocrit 37.7 % (42-52) Mean Corpuscular Volume 87.1 fL (80-100) Mean Corpuscular Hemoglobin 28.9 pg (25-34) Mean Corpuscular Hemoglobin Concent 33.2 g/dl (32-36) Platelet Count 154 K/uL (130-400) Mean Platelet Volume 10.7 fL (7.4-10.4) Neutrophils (%) (Auto) 76.3 % Lymphocytes (%) (Auto) 15.4 % Monocytes (%) (Auto) 7.7 % Eosinophils (%) (Auto) 0.3 % Basophils (%) (Auto) 0.2 % Neutrophils # (Auto) 7.66 K/uL (1.4-6.5) Lymphocytes # (Auto) 1.55 K/uL (1.2-3.4) Monocytes # (Auto) 0.77 K/uL (0.11-0.59) Eosinophils # (Auto) 0.03 K/uL (0-0.5) Basophils # (Auto) 0.02 K/uL (0-0.2) RDW Standard Deviation 43.5 fL (36.4-46.3) RDW Coefficient of Variation 13.6 % (11.5-14.5) Immature Granulocyte % (Auto) 0.1 % Immature Granulocyte # (Auto) 0.01 K/uL (0.00-0.02) Anion Gap 3.0 mmol/L (3-11) Est Creatinine Clear Calc Drug Dose 65.2 ml/min Estimated GFR () 90.4 Estimated GFR (Non- 78.0 BUN/Creatinine Ratio 18.4 (10-20) Calcium Level 9.2 mg/dl (8.5-10.1) Total Bilirubin 0.3 mg/dl (0.2-1) Direct Bilirubin 0.1 mg/dl (0-0.2) Aspartate Amino Transf (AST/SGOT) 16 U/L (15-37) Alanine Aminotransferase (ALT/SGPT) 20 U/L (12-78) Alkaline Phosphatase 65 U/L (45-117) Total Protein 7.0 gm/dl (6.4-8.2) Albumin 3.0 gm/dl (3.4-5.0) Lipase 459 U/L (73-393) Urine Color YELLOW Urine Appearance CLEAR (CLEAR) Urine pH 7.0 (4.5-7.5) Urine Specific Blaine 1.023 (1.000-1.030) Urine Protein NEG (NEG) Urine Glucose (UA) NEG (NEG) Urine Ketones NEG (NEG) Urine Occult Blood TRACE (NEG) Urine Nitrite NEG (NEG) Urine Bilirubin NEG (NEG) Urine Urobilinogen NEG (NEG) Urine Leukocyte Esterase NEG (NEG) Urine WBC (Auto) 0 /hpf (0-5) Urine RBC (Auto) 5-10 /hpf (0-4) Urine Hyaline Casts (Auto) 1-5 /lpf (0-5) Urine Epithelial Cells (Auto) 0-5 /lpf (0-5) Urine Bacteria (Auto) NEG (NEG) Laboratory results per my review. Medications Administered Medications (Trade) Dose Ordered Sig/Kenneth Route Start Time Stop Time Status Last Admin Dose Admin Sodium Chloride 1,000 ml @ 999 mls/hr Q1H1M STAT IV 05/25/17 14:06 05/25/17 15:06 DC 05/25/17 14:32 999 MLS/HR ED Course ED COURSE: Vital signs were reviewed and showed hypertension. The patients medical record was reviewed The above diagnostic studies were performed and reviewed. ED treatments and interventions as stated above. 1354: The patient was evaluated in room B5. A complete history and physical examination was performed. 1406: NSS 1000 ml @ 999 mls/hr IV. 1640: I discussed the patient's case with Dr. Santiago [facility] gastroenterology. He believes this is radiation proctitis. He recommends no antibiotics with 2 negative stool cultures. He will try to get him in for a colonoscopy within the next week. 1645: Upon reevaluation, the patient is resting comfortably. He is unable to provide a stool sample. I discussed my findings with the patient and he understands and agrees with the treatment plan. Based on the patients age, coexisting illnesses, exam and lab findings the decision to treat as an outpatient was made. The patient remained stable while under my care. The patient appeared well at the time of discharge. 1650: Dr. Santiago called back and informed me that he is not application security specialist. 1657: I discussed the patient's case with Dr. Yoo, [facility] gastro[place]ology. He thinks this is most likely radiation proctitis. He recommends cortisone suppository and follow up in office. Medical Decision Differential diagnoses includes but is not limited to gastritis, peptic ulcer disease, GERD, gallbladder disease, pancreatitis, small bowel obstruction, acute coronary syndrome, pericarditis, ischemic bowel, irritable bowel disease, irritable bowel syndrome, appendicitis, diverticulitis, malignancy, hernia, urinary tract infection, torsion, perforation, trauma, infectious. Patient is a 76-year-old male who presents to ER for persistent diarrhea which has been present for the past 6 months. He has followed up with GI and had a colonoscopy scheduled but did not perform the entire bowel prep and the colonoscopy had to be aborted. This was with Dr. yoo. He denies any bright red blood or dark tarry stools. No blood thinners. Labs were remarkable for hemoglobin 12.5. No leukocytosis. No fevers. CBC along with BMP, LFTs and bilirubin was unremarkable. Lipase was slightly elevated at 450 but there was no abdominal pain. UA was negative. CT abdomen and pelvis shows proctitis. Patient does have a history of seeds placed and prostate. 2 previous C. difficile's were negative. To previous stool cultures negative. Unable to obtain stool culture here. Rectal was not melanotic but did have faint bright red blood. Discussed with GI. They recommended following up as an outpatient as hemoglobin is 12.5 and vitals are stable. They favor this is likely secondary to radiation which would make the most sense. He does not appear to be infected. Family was updated at bedside. Discharged to follow-up with GI. Discussed with Pt concerning signs and symptoms to watch out for. Pt was instructed to follow up with their PCP and discussed with the patient their option to return to the ED at anytime for persistent or worsening symptoms. The appropriate anticipatory guidance and out-patient management, including indications for return to the emergency department, were explained at length to the patient and understood. Medication Reconcilliation Current Medication List: was personally reviewed by me Blood Pressure Screening Patient's blood pressure: Elevated blood pressure Blood pressure disposition: Elevated BP felt to be situational Consults Time Called: [phone] Consulting Physician: Dr. Santiago [facility] gastroenterology Returned Call: [phone] I discussed the patient's case with him. He believes this is radiation proctitis. He recommends no antibiotics with 2 negative stool cultures. He will try to get him in for a colonoscopy within the next week. Additional Consults: Time Called: 165 Consulted Physician: Dr. Yoo, [facility] gastroenterology Returned Call: [phone] Additional Comments: I discussed the patient's case with him. He thinks this is most likely radiation proctitis. He recommends cortisone suppository and follow up in office. Impression Primary Impression: Diarrhea Additional Impression: Radiation proctitis Scribe Attestation The scribe's documentation has been prepared under my direction and personally reviewed by me in its entirety. I confirm that the note above accurately reflects all work, treatment, procedures, and medical decision making performed by me. Departure Information Dispostion Home / Self-Care Prescriptions Hydrocortisone Acetate (Rectal (ANUCORT-HC) 25 Mg Sup 25 MG UT DAILY for pin, #10 Prov: Viraj Oneill, DO 05/25/17 Referrals Chino Jones M.D. (PCP) Paxton Yoo D.O. Forms HOME CARE DOCUMENTATION FORM, IMPORTANT VISIT INFORMATION, WORK / SCHOOL INSTRUCTIONS Patient Instructions ED Diarrhea Viral, My [facility] Additional Instructions Please follow up with your primary care doctor with in the next 24 hours. Any worsening of your symptoms, please return to the ED immediately. This includes any fevers greater than 100.4, worsening pain, chest pain, shortness breath, persistent nausea, vomiting, unable to eat or drink, blood in your stool, passing out, dark tary stools or any other concerning signs or symptoms from your standpoint. Problem Qualifiers Primary Impression: Diarrhea Diarrhea type: unspecified type Qualified Codes: R19.7 - Diarrhea, unspecified
== END ==
LOC: C.EDB 12:55
DX: R19.7 Diarrhea, unspecified (principal); K62.7 Radiation proctitis; Z87.891 Personal history of nicotine dependence; Z79.82 Long term (current) use of aspirin

== ENCOUNTER 2017-05-28 12:54 | Emergency (ER) | payer BC ==
[~2017-05-28] VITALS: Ht 177.8 cm; Wt 67.4 kg
[~2017-05-28 12:54] MED LIST changes: -ASCO500T16 PO; -LOPE2TAB84 PO; -SODIUM CHLORIDE 0.9% 1000ML 1,000 ML IV STA
[2017-05-28 12:58] VITALS: Ht 177.8 cm; Wt 67.4 kg
[2017-05-28] MEDS ORDERED: SODIUM CHLORIDE 0.9% 1000ML 1,000 ML IV STA (13:21)
[2017-05-28 13:51] LABS: BASO % 0.1 %; BASO ABS # 0.01 K/uL (0-0.2); COMPLETE YES; EOS % 0.4 %; HEMATOCRIT 40.9 % (42-52); IG% 0.3 %; LYMPH % 13.6 %; LYMPH ABS # 1.43 K/uL (1.2-3.4); MEAN CELL VOLUME 87.4 fL (80-100); MEAN CORPUSCULAR HEMOGLOBIN 28.4 pg (25-34); MEAN CORPUSCULAR HGB CONC 32.5 g/dl (32-36); MEAN PLATELET VOLUME 10.5 fL (7.4-10.4); MONO % 6.8 %; NEUT % 78.8 %; PLATELET COUNT 172 K/uL (130-400); RED BLOOD COUNT 4.68 M/uL (4.7-6.1); WHITE BLOOD COUNT 10.48 K/uL (4.8-10.8)
--- NOTE | 2017-05-28 14:08 | EMERGENCY ROOM VISIT NOTE ---
History Report prepared by Nacho: Frannie Michele Under the Supervision of: Dr. Luke Rich M.D. First contact with patient: 13:02 Chief Complaint: BACK PAIN Stated Complaint: LOWER BACK PAIN History of Present Illness The patient is a 76 year old male who presents to the Emergency Room with complaints of persistent pain to his rectum that began three weeks ago. He currently rates his discomfort as an 8/10 in severity. Per the patient's , the patient has a history of prostate cancer and had radiation seeds implanted 10 years ago in his prostate. She states that recently the seeds came loose which have been causing him pain. The patient reports back pain today. The patient reports that he was evaluated in the emergency department a few days ago for pain that has persisted. He states that his pain has gradually worsened. The patient reports diarrhea for the past six months. He additionally reports burning with urination. The patient denies any fever, chills, cough, congestion, chest pain, shortness of breath, nausea, vomiting, or constipation. The patient's states that the patient has been using Preparation H for his pain, but the patient denies any relief. Source of History: patient, spouse/significant other () Onset: three weeks ago Position: other (rectum) Symptom Intensity: 8/10 Timing: other (persistent) Associated Symptoms: + back pain, + diarrhea, + urinary symptoms (burning with urination), No fevers, No chills, No cough, No chest pain, No SOB, No nausea, No vomiting Review of Systems See HPI for pertinent positives and negatives. A total of ten systems were reviewed and were otherwise negative. Past Medical & Surgical Surgical Problems: (1) History of knee replacement, total Family History Cancer Social History Smoking Status: Never Smoker Alcohol Use: none Drug Use: none Marital Status: Housing Status: lives with significant other Occupation Status: retired Current/Historical Medications Scheduled Ascorbic Acid (Vitamin C), 1 TAB PO QAM Aspirin (Aspir-81), 1 TAB PO QAM Lisinopril (Prinivil), 5 MG PO QPM Multivitamin (Multivitamin), 1 TAB PO QAM Simvastatin (Zocor), 10 MG PO QPM Scheduled PRN Ibuprofen (Ibu-200), 2 TAB PO QID PRN for Pain Allergies Coded Allergies: Heparin (Verified Allergy, Severe, HIT ANTIBODY POSITIVE (PER DR JONES) , 05/25/17) Hydrocodone (Verified Allergy, Severe, SHORTNESS OF BREATH, 05/25/17) Physical Exam Vital Signs Date Time Temp Pulse Resp B/P (MAP) Pulse Ox O2 Delivery O2 Flow Rate FiO2 05/28/17 17:25 36.4 62 20 154/87 98 05/28/17 17:01 62 20 154/87 98 Room Air 05/28/17 15:43 62 20 155/90 98 Room Air 05/28/17 14:11 99 Room Air 05/28/17 13:42 61 05/28/17 12:58 36.4 79 18 137/89 97 Room Air Physical Exam GENERAL: Awake, alert, well-appearing, in no distress HENT: Normocephalic, atraumatic. Oropharynx unremarkable. EYES: Normal conjunctiva. Sclera non-icteric. NECK: Supple. No nuchal rigidity. FROM. No JVD. RESPIRATORY: Clear to auscultation. CARDIAC: Regular rate, normal rhythm. Extremities warm and well perfused. Pulses equal. ABDOMEN: Soft, non-distended. No tenderness to palpation. No rebound or guarding. No masses. RECTAL: External exam with brown stool. No perianal ttp, induration, or fluctuance. MUSCULOSKELETAL: Chest examination reveals no tenderness. The back is symmetrical on inspection without obvious abnormality. There is no CVA tenderness to palpation. No joint edema. LOWER EXTREMITIES: Calves are equal size bilaterally and non-tender. No edema. No discoloration. NEURO: Normal sensorium. No sensory or motor deficits noted. SKIN: No rash or jaundice noted. Medical Decision & Procedures Laboratory Results 05/28/17 13:35 Red Blood Count 4.68, Mean Corpuscular Volume 87.4, Mean Corpuscular Hemoglobin 28.4, Mean Corpuscular Hemoglobin Concent 32.5, Mean Platelet Volume 10.5, Neutrophils (%) (Auto) 78.8, Lymphocytes (%) (Auto) 13.6, Monocytes (%) (Auto) 6.8, Eosinophils (%) (Auto) 0.4, Basophils (%) (Auto) 0.1, Neutrophils # (Auto) 8.26, Lymphocytes # (Auto) 1.43, Monocytes # (Auto) 0.71, Eosinophils # (Auto) 0.04, Basophils # (Auto) 0.01 05/28/17 13:35 Test 05/28/17 13:35 White Blood Count 10.48 K/uL (4.8-10.8) Red Blood Count 4.68 M/uL (4.7-6.1) Hemoglobin 13.3 g/dL (14.0-18.0) Hematocrit 40.9 % (42-52) Mean Corpuscular Volume 87.4 fL (80-100) Mean Corpuscular Hemoglobin 28.4 pg (25-34) Mean Corpuscular Hemoglobin Concent 32.5 g/dl (32-36) Platelet Count 172 K/uL (130-400) Mean Platelet Volume 10.5 fL (7.4-10.4) Neutrophils (%) (Auto) 78.8 % Lymphocytes (%) (Auto) 13.6 % Monocytes (%) (Auto) 6.8 % Eosinophils (%) (Auto) 0.4 % Basophils (%) (Auto) 0.1 % Neutrophils # (Auto) 8.26 K/uL (1.4-6.5) Lymphocytes # (Auto) 1.43 K/uL (1.2-3.4) Monocytes # (Auto) 0.71 K/uL (0.11-0.59) Eosinophils # (Auto) 0.04 K/uL (0-0.5) Basophils # (Auto) 0.01 K/uL (0-0.2) RDW Standard Deviation 44.1 fL (36.4-46.3) RDW Coefficient of Variation 13.8 % (11.5-14.5) Immature Granulocyte % (Auto) 0.3 % Immature Granulocyte # (Auto) 0.03 K/uL (0.00-0.02) Anion Gap 6.0 mmol/L (3-11) Est Creatinine Clear Calc Drug Dose 64.0 ml/min Estimated GFR () 90.4 Estimated GFR (Non- 78.0 BUN/Creatinine Ratio 16.8 (10-20) Lactic Acid Level 0.9 mmol/L (0.4-2.0) Calcium Level 9.4 mg/dl (8.5-10.1) Phosphorus Level 3.4 mg/dl (2.5-4.9) Magnesium Level 2.5 mg/dl (1.8-2.4) Total Bilirubin 0.5 mg/dl (0.2-1) Direct Bilirubin 0.2 mg/dl (0-0.2) Aspartate Amino Transf (AST/SGOT) 15 U/L (15-37) Alanine Aminotransferase (ALT/SGPT) 20 U/L (12-78) Alkaline Phosphatase 60 U/L (45-117) Total Protein 7.4 gm/dl (6.4-8.2) Albumin 3.3 gm/dl (3.4-5.0) Lipase 457 U/L (73-393) Medications Administered Medications (Trade) Dose Ordered Sig/Kenneth Route Start Time Stop Time Status Last Admin Dose Admin Sodium Chloride 1,000 ml @ 999 mls/hr Q1H1M STAT IV 05/28/17 13:21 05/28/17 14:21 DC 05/28/17 13:43 999 MLS/HR ED Course 1311: The patient was evaluated in room A9B. A complete history and physical exam was performed. 1321: Ordered Sodium Chloride 1000 ml @ 999 mls/hr IV. Medical Decision I reviewed the patient's past medical history, medications, and the nursing notes as described above. DDX: worsening proctitis, fistula, abscess Patient is a 76-year-old gentleman with a past mental history of prostate cancer status post prostate brachytherapy 2004 who presents to the emergency department with persistent rectal pain as he did 2 days prior when seen in the emergency department and had CT scan showing proctitis per HPI. On arrival of the patient is in no acute distress, afebrile with stable vital signs. External exam of the patient's anus was negative for any tenderness to palpation , induration, fluctuance. Otherwise small amount of brown stool present. Patient's prior visit 2 days ago he was prescribed hydrocortisone suppository which he attempted to fill however since it was not covered by his insurance he did not purchase it and instead has used Preparation H. However he did not follow-up with his PCP or GI as instructed. Patient's labs were completed and there were unremarkable with WBC within normal limits. General the patient is otherwise well-appearing, no indication for repeat imaging today. Case was discussed with GI, Dr. yoo, who agrees with outpatient management and reports that their clinic had availability this week but the patient did not call. Thus case management a cyst seemed to help with the patient obtaining his prescription with coupons, will assist in arranging follow-up with the GI clinic early next week. He already has urology follow-up with Dr. Mabry scheduled for of next week. Findings and plan for follow-up d/w patient. Patient agreeable and d/c'd per discharge instructions. Medication Reconcilliation Current Medication List: was personally reviewed by me Blood Pressure Screening Blood pressure disposition: Elevated BP felt to be situational Consults Consulting Physician: AMAYA, Dr. Yoo. Impression Primary Impression: Proctitis Scribe Attestation The scribe's documentation has been prepared under my direction and personally reviewed by me in its entirety. I confirm that the note above accurately reflects all work, treatment, procedures, and medical decision making performed by me. Departure Information Dispostion Home / Self-Care Referrals Chino Jones M.D. (PCP) Patient Instructions My [facility] Additional Instructions Please follow up with your urologist as scheduled and with gastroenterology next week for re-evaluation. You were given coupons to offset the cost of your hydrocortisone suppository prescription. Otherwise, your exam and lab results did not show signs of an emergent condition at this time. Return to the emergency department for worsening symptoms such as pain, fevers, nausea/vomiting, rectal bleeding.
[2017-05-28 14:11] VITALS: O2SAT 99
[2017-05-28 14:11] LABS: BUN/CREATININE RATIO 16.8 (10-20); CALCIUM 9.4 mg/dl (8.5-10.1); CREATININE 0.95 mg/dl (0.60-1.40); MAGNESIUM 2.5 mg/dl (1.8-2.4); POTASSIUM 3.7 mmol/L (3.5-5.1)
[2017-05-28 14:14] LABS: PHOSPHORUS 3.4 mg/dl (2.5-4.9)
[2017-05-28 17:25] VITALS: BP 154/87; PULSE 62; TEMP 36.4; O2SAT 98
[2017-06-03] MEDS ORDERED: ASCO500T16 PO (20:59)
== END 2017-05-28 17:26 | disposition home or self-care (01) ==
LOC: C.EDB 12:56 → C.EDA 17:26
DX: K62.89 Other specified diseases of anus and rectum (principal); Z96.659 Presence of unspecified artificial knee joint; Z79.82 Long term (current) use of aspirin; Z79.899 Other long term (current) drug therapy; Z88.5 Allergy status to narcotic agent; Z88.8 Allergy status to other drugs, medicaments and biological substances; Z80.9 Family history of malignant neoplasm, unspecified

== ENCOUNTER → 2017-06-03 | Outpatient (CLI) | payer BC ==
[~2017-06-03] MED LIST changes: +ASCO500T16 PO; -HYDR25SU6 PR
--- NOTE | 2017-06-03 15:37 | DIAGNOSTIC IMAGING REPORT ---
PA CHEST WITH ABDOMINAL SERIES CLINICAL HISTORY: Diarrhea. Constipation. Change in bowel habits. FINDINGS: A PA chest radiograph is compared to study dated 04/03/2017. The cardiomediastinal silhouette is unremarkable. There is atherosclerotic calcification of the thoracic aorta. Emphysema is suspected. Chronic interstitial thickening is similar to previous. No airspace consolidation, pleural effusion, or Pneumothorax is seen. The skeletal structures are osteopenic. The bony thorax is grossly intact. Supine and erect abdominal radiographs are correlated with abdominal CT dated 05/25/2017. There is a nonobstructed abdominal bowel gas pattern. Moderate colonic fecal retention is observed. No evidence of intraperitoneal free air is seen. There are no abnormal abdominal calcifications. Brachytherapy seeds in the prostate and phleboliths are noted in the pelvis. Degenerative change and scoliosis are noted in the lumbosacral spine. The lumbosacral spine and bony pelvis appear intact. IMPRESSION: 1. No acute cardiopulmonary abnormality. 2. Nonobstructed abdominal bowel gas pattern noting moderate colonic fecal retention. Electronically signed by: Morales Mitchell M.D. 06/03/2017 3:35 PM Dictated Date/Time: 06/03/2017 3:33 PM
== END | disposition home or self-care (01) ==
LOC: C.RAD 14:57
PROVIDERS: ATTEND Physician Assistant
DX: R19.4 Change in bowel habit (principal); K59.00 Constipation, unspecified; R19.7 Diarrhea, unspecified